=== PATIENT | male | born 1980 | race African-American/Black ===

== ENCOUNTER 2021-07-19 18:12 | Emergency (ER) | payer OTHER ==
[~2021-07-19] VITALS: Ht 180.3 cm; Wt 85.9 kg
[2021-07-19] MEDS ORDERED: ACET-897 PO (18:18)
[2021-07-19] MEDS ORDERED: methocarbamoL 750 MG TAB PO ONE (21:45)
[2021-07-19] MEDS ORDERED: KETOROLAC 60MG 2ML VIAL IM ONE (21:45)
[2021-07-19 21:46] VITALS: BP 135/95
[2021-07-19] MEDS ORDERED: KETO10TAB PO (23:50)
[2021-07-19] MEDS ORDERED: METH-1165 PO (23:50)
== END 2021-07-20 00:14 | disposition home or self-care (01) ==
LOC: M ED 18:12
DX: S39.012A Strain of muscle, fascia and tendon of lower back, initial encounter (principal); S23.3XXA Sprain of ligaments of thoracic spine, initial encounter; Y92.9 Unspecified place or not applicable; Y93.9 Activity, unspecified; Y99.9 Unspecified external cause status
CPT/HCPCS: 72072; 72110; 96372; 99283; J1885